=== PATIENT | female | born 1995 | race Caucasian/White ===

== ENCOUNTER 2022-08-21 16:44 | Emergency (ER) | payer OTHER, MEDICAID | END 2022-08-21 17:04 | disposition home or self-care (01) | LOC: VM.ED 16:44 | DX: J06.9 Acute upper respiratory infection, unspecified (principal); B97.89 Other viral agents as the cause of diseases classified elsewhere | CPT/HCPCS: 99283 ==

== ENCOUNTER 2024-05-22 08:12 | Emergency (ER) | payer MEDICAID, OTHER | END 2024-05-22 09:15 | disposition home or self-care (01) | LOC: VM.ED 08:12 | DX: J06.9 Acute upper respiratory infection, unspecified (principal); B97.89 Other viral agents as the cause of diseases classified elsewhere; Z79.899 Other long term (current) drug therapy | CPT/HCPCS: 87428-QW; 99283 ==